=== PATIENT | male | born 1990 | race Caucasian/White ===

== ENCOUNTER 2017-04-30 21:48 | Emergency (ER) | payer SELFPAY ==
[~2017-04-30] VITALS: Ht 185.4 cm; Wt 97.0 kg
[~2017-04-30 21:48] MED LIST: ASPIRIN325 MG PO; BACTRIM,SEPT1 TABLET PO; CELEXA20 MG PO; CITALOPRAM HBR20 MG PO; DEPAKOTE125 MG PO; DEPAKOTE500 MG PO; DILANTIN30 MG PO; FIORICET 50-301 EACH PO; FLOVENT; PHENYTEK200 MG PO; VENTOLIN HFA18 GM IH; zantac PO
[2017-04-30 22:50] LABS: HEMATOCRIT 50.1 % (38.0-50.0); MCH 31.3 PG (29.0-34.0); MCHC 34.1 G/DL (30.0-36.0); MCV 91.6 FL (86-99); MEAN PLAT.VOLUME 9.2 uM^3 (9.0-12.4); PLATELET COUNT 209 K/uL (156-360); RBC DIS.WIDTH-CV 13.2 % (11.8-14.6); RBC DIS.WIDTH-SD 45.5 % (39-53); RED BLOOD COUNT 5.47 M/uL (4.00-5.50); WHITE BLOOD COUNT 11.5 K/uL (4.1-10.2)
[2017-04-30 23:02] LABS: CHLORIDE 101 mEq/L (99-109); POTASSIUM 3.6 mEq/L (3.7-5.4); SODIUM 141 mEq/L (136-147)
[2017-04-30 23:05] LABS: GLUCOSE 105 mg/dL (70-99)
[2017-04-30 23:06] LABS: ANION GAP 14 MEQ/L (2-14); TOTAL BILIRUBIN 0.7 mg/dL (0.0-1.0)
[2017-04-30 23:08] LABS: ALKALINE PHOSPHATASE 78 IU/L (3-129); GFR ESTIMATE (CALCULATED) > 59 mL/min/
[2017-04-30 23:09] LABS: UREA NITROGEN (BUN) 24 mg/dL (9-23)
[2017-04-30 23:12] LABS: CREATINE KINASE 90 IU/L (1-294); LIPASE 8 U/L (1.0-51.0)
[2017-05-01] MEDS ORDERED: BENTYL20 MG PO (00:58)
[2017-05-01] MEDS ORDERED: PROMETHAZINE HC25 M1 PO (00:58)
[2017-05-01 01:28] VITALS: BP 118/76
== END 2017-05-01 01:32 | disposition home or self-care (01) ==
LOC: EME 21:48
DX: R19.7 Diarrhea, unspecified (principal); R11.2 Nausea with vomiting, unspecified; R10.84 Generalized abdominal pain; D72.829 Elevated white blood cell count, unspecified; Z87.442 Personal history of urinary calculi
CPT/HCPCS: 74177; 80053; 81003; 82550; 83690; 85027; 99281; 99284; J2765; J7030